=== PATIENT | female | born 1965 | race Caucasian/White ===

== ENCOUNTER → 2020-03-23 | Outpatient (CLI) | payer MEDICARE, BC ==
[2020-03-23 11:00] LABS: African American GFR (CKD) >90 (>60 ml/min/1.73 sqM); Blood Urea Nitrogen 14 mg/dL (7-17); Non-African American GFR(CKD) >90 (>60 ml/min/1.73 sqM)
--- NOTE | 2020-03-23 12:25 | US ---
EXAMINATION TYPE: US abdomen complete DATE OF EXAM: 03/23/2020 COMPARISON: NONE CLINICAL HISTORY: 55-year-old female Abdominal Pain R10.10, D72.819 Leukopenia. Low WBC TECHNIQUE: Multiple sonographic images of the thyroid gland are obtained. EXAM MEASUREMENTS: Liver Length: 12.7 cm Gallbladder Wall: .2 cm CBD: .4 cm Spleen: 7.7 cm Right Kidney: 9.3 x 5.0 x 4.5 cm Left Kidney: 11.8 x 3.3 x 4.0 cm Pancreas: Tail obscured by overlying bowel gas Liver: Two cystic areas seen largest with septated area seen measuring 3.0 x 6.0 x 4.5 cm located in the right lobe Gallbladder: wnl with fold Evidence for sonographic Williamson's sign: No CBD: wnl Spleen: wnl Right Kidney: wnl Left Kidney: wnl Upper IVC: wnl Abd Aorta: wnl IMPRESSION: 1. Mildly complex right hepatic lobe cyst measuring 4.5 cm with internal septation. Consider a 6-[facility] exam to reassess as a precautionary measure. 2. No gallstones or biliary ductal dilatation.
== END | disposition home or self-care (01) ==
LOC: RADUSWWP 09:31
PROVIDERS: ATTEND Internal Medicine Hematology & Oncology
DX: K76.89 Other specified diseases of liver (principal); R10.10 Upper abdominal pain, unspecified; D72.819 Decreased white blood cell count, unspecified
CPT/HCPCS: 36415; 76700; 82565; 84520